=== PATIENT | female | born 1985 | race Caucasian/White ===

== ENCOUNTER 2016-12-01 07:39 | Inpatient (IN) | payer OTHER ==
[2016-12-01] MEDS ORDERED: Oxytocin in LR* 20 UNITS/1,000 ML BAG IVPB SCH ×2 (09:00→15:00)
[2016-12-01 09:46] LABS: Hematocrit 31 % (35-47); Hemoglobin 9.6 g/dl (12.0-16.0); Mean Corpuscular HGB Conc 31 g/dl (31-36); Mean Corpuscular Hemoglobin 23 pg (27-31); Mean Corpuscular Volume 73 fL (80-97); Mean Platelet Volume 8 um3 (7.4-10.4); Red Blood Count 4.19 10^6/ul (4.0-5.4); Red Cell Distribution Width 16 % (10.5-15)
[2016-12-01 09:50] LABS: Add Diff/Slide Review? Slide Review Added; Comments Flag Yes
[2016-12-01] MEDS ORDERED: OBEPIDURAL* 250 ML ONE (12:13)
[2016-12-01] MEDS ORDERED: Phenylephrine IV* 40 MCG/ML 10 ML SYRINGE IV PUSH PRN ×2 (13:14)
[2016-12-01] MEDS ORDERED: Sodium Citrate/Citric Acid* 15 ML UDC PO PRN (13:14)
[2016-12-01] MEDS ORDERED: Famotidine TAB* 20 MG PO PRN (13:14)
[2016-12-01] MEDS ORDERED: OBEPIDURAL* 250 ML EPIDURAL SCH (14:00)
[2016-12-01] MEDS ORDERED: Dibucaine 1% 28.35 GM TUBE PR PRN (14:38)
[2016-12-01] MEDS ORDERED: Glycerin ADULT SUPP PR PRN (14:38)
[2016-12-01] MEDS ORDERED: Acetaminophen TAB* 325 MG PO PRN (14:38)
[2016-12-01] MEDS ORDERED: Witch Hazel PAD* JAR TOPICAL PRN (14:38)
[2016-12-01] MEDS: Ibuprofen TAB* 600 MG PO PRN ×2 (16:37→22:28)
[2016-12-01] MEDS: Simethicone CHEW TAB* 80 MG PO SCH (18:16)
[2016-12-01] MEDS: Docusate CAP* 100 MG PO SCH (22:28)
[2016-12-02] MEDS: Ibuprofen TAB* 600 MG PO PRN ×4 (04:22→22:40)
[2016-12-02 06:32] LABS: Hematocrit 24 % (35-47); Hemoglobin 7.4 g/dl (12.0-16.0); Mean Corpuscular HGB Conc 31 g/dl (31-36); Mean Corpuscular Hemoglobin 23 pg (27-31); Mean Corpuscular Volume 75 fL (80-97); Mean Platelet Volume 8 um3 (7.4-10.4); Red Blood Count 3.25 10^6/ul (4.0-5.4); Red Cell Distribution Width 16 % (10.5-15); White Blood Count 15.2 10^3/ul (3.5-10.8)
[2016-12-02 06:36] LABS: Comments Flag Yes
[2016-12-02] MEDS: Ferrous Gluconate TAB* 324 MG TAB PO SCH ×2 (08:27→22:40)
[2016-12-02] MEDS: Prenatal Vitamin TAB PO SCH (08:27)
[2016-12-02] MEDS: Docusate CAP* 100 MG PO SCH ×3 (08:27→22:40)
[2016-12-02] MEDS: Simethicone CHEW TAB* 80 MG PO SCH ×2 (10:28→14:08)
[2016-12-03] MEDS: Ferrous Gluconate TAB* 324 MG TAB PO SCH (09:05)
[2016-12-03] MEDS: Docusate CAP* 100 MG PO SCH (09:09)
[2016-12-03] MEDS: Prenatal Vitamin TAB PO SCH (09:11)
[2016-12-03 11:51] VITALS: BP 111/74
== END 2016-12-03 11:55 | disposition home or self-care (01) | DRG 560 ==
LOC: MCHOBOUT 07:39 → MCHOB 08:56
PROVIDERS: ADMIT Obstetrics & Gynecology; ATTEND Obstetrics & Gynecology
PROC: 3E033VJ Introduction of Other Hormone into Peripheral Vein, Percutaneous Approach (ICD-10-PCS; principal; 2016-12-01)
PROC: 10907ZC Drainage of Amniotic Fluid, Therapeutic from Products of Conception, Via Natural or Artificial Opening (ICD-10-PCS; 2016-12-01)
PROC: 10E0XZZ Delivery of Products of Conception, External Approach (ICD-10-PCS; 2016-12-01)
PROC: 0KQM0ZZ Repair Perineum Muscle, Open Approach (ICD-10-PCS; 2016-12-01)
PROC: 4A1HXCZ Monitoring of Products of Conception, Cardiac Rate, External Approach (ICD-10-PCS; 2016-12-01)
DX: O69.81X0 Labor and delivery complicated by cord around neck, without compression, not applicable or unspecified (principal); O24.429 Gestational diabetes mellitus in childbirth, unspecified control; O90.81 Anemia of the puerperium; O70.1 Second degree perineal laceration during delivery; Z37.0 Single live birth; Z3A.39 39 weeks gestation of pregnancy; Z88.8 Allergy status to other drugs, medicaments and biological substances
CPT/HCPCS: 36415; 85025; 86850; 86900; 86901; A9270-GY